=== PATIENT | male | born 1985 | race Two or more races ===

== ENCOUNTER 2020-04-05 17:44 | Emergency (ER) | payer BC, OTHER ==
[~2020-04-05] VITALS: Ht 175.3 cm; Wt 102.1 kg
[2020-04-05] MEDS ORDERED: methylPREDNISolone SOD SUCC 125 MG/2 ML VL IM ONE (21:45)
[2020-04-05] MEDS ORDERED: KETOROLAC TROMETH 60MG/2ML VIAL IM ONE (21:45)
[2020-04-05 21:58] VITALS: BP 134/94
== END 2020-04-05 22:48 | disposition home or self-care (01) ==
LOC: ER 17:44
DX: S33.5XXA Sprain of ligaments of lumbar spine, initial encounter (principal); W19.XXXA Unspecified fall, initial encounter; Y93.89 Activity, other specified; Y92.89 Other specified places as the place of occurrence of the external cause; Y99.8 Other external cause status
CPT/HCPCS: 96372; 99284; J1885; J2930

== ENCOUNTER 2020-05-02 22:20 | Emergency (ER) | payer BC ==
[~2020-05-02] VITALS: Ht 175.3 cm; Wt 102.1 kg
[2020-05-02 23:30] VITALS: BP 122/70
== END 2020-05-02 23:49 ==
LOC: ER 22:23
DX: G89.29 Other chronic pain (principal); M54.5 Low back pain